=== PATIENT | male | born 1995 | race Two or more races ===

== ENCOUNTER 2024-08-12 09:05 | Outpatient (OUT) | payer OTHER, SELFPAY ==
[2024-08-12 10:38] LABS: Albumin Level 4.2 g/dL (3.4-5.0); Anion Gap 9.8; BUN Creatinine Ratio 15.1; Calcium 9.6 mg/dL (8.5-10.1); Carbon Dioxide 30.5 mmol/L (21.0-32.0); Chloride 100 mmol/L (98-107); Estimated GFR (African America >60 (>=60); Estimated GFR (Non-African Ame >60 (>=60); Glucose 96 mg/dL (74-106); Phosphorus 3.5 mg/dL (2.6-4.7); Potassium 4.3 mmol/L (3.5-5.1); Sodium 136 mmol/L (136-145)
== END 2024-08-12 09:06 | disposition home or self-care (01) ==
LOC: LAB 09:08
PROVIDERS: PCP Family Medicine
DX: R09.89 Other specified symptoms and signs involving the circulatory and respiratory systems (principal); Z87.74 Personal history of (corrected) congenital malformations of heart and circulatory system; Z95.828 Presence of other vascular implants and grafts
CPT/HCPCS: 36415; 80069; 83880